=== PATIENT | male | born 1995 | race African-American/Black ===

== ENCOUNTER 2020-08-17 14:53 | Emergency (ER) | payer OTHER ==
[~2020-08-17] VITALS: Ht 177.8 cm; Wt 181.4 kg
[2020-08-17 15:00] VITALS: BP 141/89
== END 2020-08-17 16:26 | disposition home or self-care (01) ==
LOC: EDBD 14:53 → ER 14:53
DX: S39.012A Strain of muscle, fascia and tendon of lower back, initial encounter (principal); S50.11XA Contusion of right forearm, initial encounter; V49.9XXA Car occupant (driver) (passenger) injured in unspecified traffic accident, initial encounter; Y93.89 Activity, other specified; Y92.89 Other specified places as the place of occurrence of the external cause; Y99.8 Other external cause status
CPT/HCPCS: 72100